=== PATIENT | male | born 1975 | race Caucasian/White ===

== ENCOUNTER 2017-04-06 14:24 | Inpatient (IN) | payer MEDICAID ==
[~2017-04-06] VITALS: Ht 180.3 cm; Wt 104.4 kg
[~2017-04-06 14:24] MED LIST: COLACE100 MG PO; FLAGYL500 MG PO; GAS RELIEF80 MG PO; HUMULIN R100 U/1 M1 SC; IBUPROFEN400 MG PO; LAC PO; LEVAQUIN750 MG PO; LEVEMIR100 U/M1 SC; LIPI10 PO; LOP600 PO; LOVASTATIN40 MG PO; METFORMIN HCL1000 MG PO; METFORMIN HCL500 MG PO; METFORMIN HCL850 MG PO; NOR10T PO; NORCO1 TA2 PO; NOVOLIN R100 U/ML IJ; PAN PO; PRILOSEC20 MG PO; PROTONIX40 MG PO; REG5 PO; ZETIA10 M1 PO
[2017-04-06 15:37] LABS: BILIRUBIN TOTAL 0.9 mg/dL (0.20-1.00); CALCIUM 6.6 mg/dL (8.5-10.1); CHLORIDE SERUM 93 mmol/L (98-107); CREATININE SERUM 0.9 mg/dL (0.7-1.3); GFR1 > 60 mL/min; GLUCOSE SERUM 424 mg/dL (74-106); LIPASE 269 IU/L (73-393); POTASSIUM SERUM 3.7 mmol/L (3.5-5.1); SODIUM SERUM 128 mmol/L (136-145)
[2017-04-06 15:39] LABS: PLATELET COUNT 279 x10^3mcL (130-400)
[2017-04-06 15:57] LABS: BAND NEUTROPHIL 4 % (0-10); BASOPHIL 0 % (0-2); MONOCYTE 1 % (0-7); SEGMENTED NEUTROPHILS 80 % (37-75)
[2017-04-06 16:21] LABS: ALKALINE PHOSPHATASE 154 U/L (46-116); AST/SGOT 94 U/L (15-37)
[2017-04-06 16:36] LABS: PLATELET MORPHOLOGY PLATELETS NORMAL
[2017-04-06 17:01] LABS: BILIRUBIN TOTAL 0.87 mg/dL (0.20-1.00); CALCIUM 6.4 mg/dL (8.5-10.1); CHLORIDE SERUM 97 mmol/L (98-107); GFR1 > 60 mL/min; GLUCOSE SERUM 273 mg/dL (74-106); POTASSIUM SERUM 3.5 mmol/L (3.5-5.1); SODIUM SERUM 132 mmol/L (136-145)
[2017-04-06 17:11] LABS: CARBON DIOXIDE 8.4 mmol/L (21-32)
[2017-04-06 17:14] LABS: TOTAL PROTEIN, SERUM 6.7 g/dL (6.4-8.2)
[2017-04-06 17:15] LABS: ALBUMIN 2.8 g/dL (3.4-5.0); CARBON DIOXIDE 9.4 mmol/L (21-32)
[2017-04-06 18:26] LABS: ALBUMIN 2.6 g/dL (3.4-5.0); ALKALINE PHOSPHATASE 154 U/L (46-116); AST/SGOT 94 U/L (15-37); CREATININE SERUM 0.5 mg/dL (0.7-1.3); TOTAL PROTEIN, SERUM 6.7 g/dL (6.4-8.2)
[2017-04-06 18:37] VITALS: Ht 180.3 cm; Wt 104.4 kg
[2017-04-06 18:39] VITALS: BP 128/74
[2017-04-06 18:41] VITALS: BP 128/74
[2017-04-06 19:46] LABS: T3 TOTAL 1.01 ng/mL
[2017-04-06 19:47] LABS: AMYLASE 41 U/L (25-115); HDL CHOLESTEROL 44 mg/dL (40-60)
[2017-04-06 19:48] LABS: FREE T4 0.89 ng/dL (0.76-1.46)
[2017-04-06 20:27] VITALS: BP 104/50
[2017-04-06 21:12] LABS: CHOLESTEROL 428 mg/dL (<200); CHOLESTEROL/HDL RATIO 9.7; TRIGLYCERIDES 5069 mg/dL (<150)
[2017-04-06 21:14] LABS: T4(THYROXINE) 5.4 ug/dL (4.7-13.3)
[2017-04-07 05:38] LABS: PLATELET COUNT 241 x10^3mcL (130-400); RED CELL DISTRIBUTION WIDTH 13.5 % (11.5-14.5)
[2017-04-07 06:13] VITALS: BP 108/71
[2017-04-07 06:14] LABS: ATYPICAL LYMPH 1 %; MONOCYTE 4 % (0-7); SEGMENTED NEUTROPHILS 58 % (37-75)
[2017-04-07 06:16] LABS: PLATELET MORPHOLOGY FEW LARGE PLATELETS; rbc morphology (normal/abnorm) NORMAL (NORMAL)
[2017-04-07 07:24] LABS: CALCIUM 6.8 mg/dL (8.5-10.1); CARBON DIOXIDE 15.7 mmol/L (21-32); CHLORIDE SERUM 100 mmol/L (98-107); MAGNESIUM 1.7 mg/dL (1.8-2.4); PHOSPHOROUS 2.7 mg/dL (2.5-4.9); SODIUM SERUM 134 mmol/L (136-145)
[2017-04-07 07:37] LABS: CREATININE SERUM 0.6 mg/dL (0.7-1.3); GFR1 > 60 mL/min
[2017-04-07 07:38] LABS: GLUCOSE SERUM 296 mg/dL (74-106)
[2017-04-07 09:55] LABS: UA SPECIFIC GRAVITY 1.025 (1.005-1.035); microscopic required? YES; urine erythrocyte TRACE (NEGATIVE)
[2017-04-07 10:01] LABS: AMPHETAMINE QUAL UR NONE DETECTED (NEG <=1000)
[2017-04-07 10:16] VITALS: BP 111/66
[2017-04-07 14:29] VITALS: BP 120/66
[2017-04-07 17:47] VITALS: BP 1125/73; BP 125/73
[2017-04-07] MEDS ORDERED: MYCOO TOP (18:57)
[2017-04-07 22:36] LABS: ALT/SGPT 25 U/L (16-63)
== END 2017-04-07 18:47 | disposition left against medical advice (07) | DRG 48 ==
LOC: ED 14:24 → DU 17:38
PROVIDERS: Emergency Medicine; ADMIT Family Medicine
DX: E11.43 Type 2 diabetes mellitus with diabetic autonomic (poly)neuropathy (principal); E43 Unspecified severe protein-calorie malnutrition; E87.2 Acidosis; K86.1 Other chronic pancreatitis; E11.65 Type 2 diabetes mellitus with hyperglycemia; E87.1 Hypo-osmolality and hyponatremia; K86.81 Exocrine pancreatic insufficiency; E87.8 Other disorders of electrolyte and fluid balance, not elsewhere classified; E83.51 Hypocalcemia; I10 Essential (primary) hypertension; B37.49 Other urogenital candidiasis; K31.84 Gastroparesis; M54.32 Sciatica, left side; E78.5 Hyperlipidemia, unspecified; Z98.1 Arthrodesis status; Z79.4 Long term (current) use of insulin; Z68.32 Body mass index [BMI] 32.0-32.9, adult; F17.210 Nicotine dependence, cigarettes, uncomplicated; Z79.84 Long term (current) use of oral hypoglycemic drugs; Z79.1 Long term (current) use of non-steroidal anti-inflammatories (NSAID)
CPT/HCPCS: 36600; 82962; 83880; 84439; C9113; J1200; J1450; J1815; J2270; J2405; J7030; J7042; J8597; Q0092

== ENCOUNTER 2017-11-11 16:20 | Inpatient (IN) | payer MEDICAID ==
[~2017-11-11] VITALS: Ht 180.3 cm; Wt 99.3 kg
[~2017-11-11 16:20] MED LIST changes: -METFORMIN HCL1000 MG PO; +METFORMIN HYDR500 M1 PO; +MYCOO TOP
[2017-11-11 20:56] LABS: PLATELET COUNT 377 x10^3mcL (130-400); RED CELL DISTRIBUTION WIDTH 13.7 % (11.5-14.5)
[2017-11-11 21:26] LABS: BAND NEUTROPHIL 3 % (0-10); BASOPHIL 0 % (0-2); MONOCYTE 3 % (0-7); SEGMENTED NEUTROPHILS 72 % (37-75)
[2017-11-11 21:27] LABS: rbc morphology (normal/abnorm) NORMAL (NORMAL)
[2017-11-12] VITALS (7 sets, daily range): BP systolic 108–143; BP diastolic 67–80; Ht 180.3 cm; Wt 99.3 kg
[2017-11-12] MEDS ORDERED: LANTUS SOLOS100 U/M1 (00:26)
[2017-11-12] MEDS ORDERED: NOVI SQ (00:26)
[2017-11-12 00:49] LABS: microscopic required? YES; urine erythrocyte NEGATIVE (NEGATIVE)
[2017-11-12 02:01] LABS: AMPHETAMINE QUAL UR NONE DETECTED (NEG <=1000)
[2017-11-12 04:26] LABS: PLATELET COUNT 287 x10^3mcL (130-400); RED CELL DISTRIBUTION WIDTH 13.3 % (11.5-14.5)
[2017-11-12 04:49] LABS: BAND NEUTROPHIL 2 % (0-10); SEGMENTED NEUTROPHILS 85 % (37-75); rbc morphology (normal/abnorm) NORMAL (NORMAL)
[2017-11-12 15:12] LABS: CARBON DIOXIDE 22.2 mmol/L (21-32); CHLORIDE SERUM 101 mmol/L (98-107); CHOLESTEROL 195 mg/dL (<200); CREATININE SERUM 0.5 mg/dL (0.7-1.3); GFR1 > 60 mL/min; GLUCOSE SERUM 230 mg/dL (74-106); LACTIC DEHYDROGENASE (LDH) 137 U/L (100-190); PHOSPHOROUS 2.6 mg/dL (2.5-4.9); POTASSIUM SERUM 3.9 mmol/L (3.5-5.1); SODIUM SERUM 138 mmol/L (136-145)
[2017-11-12 15:15] LABS: CHOLESTEROL/HDL RATIO 7.8; HDL CHOLESTEROL 25 mg/dL (40-60); TRIGLYCERIDES 929 mg/dL (<150)
[2017-11-12 15:44] LABS: FREE T4 1.2 ng/dL (0.76-1.46); FREE THYROXINE INDEX 2.8 ug/dL (1.4-4.5); T4(THYROXINE) 8.1 ug/dL (4.7-13.3)
[2017-11-13 04:50] VITALS: BP 125/69
[2017-11-13 06:27] LABS: BASOPHIL % 0.6 % (0-2); PLATELET COUNT 223 x10^3mcL (130-400); RED CELL DISTRIBUTION WIDTH 13.3 % (11.5-14.5)
[2017-11-13 06:45] LABS: CALCIUM 7.7 mg/dL (8.5-10.1); CARBON DIOXIDE 23.2 mmol/L (21-32); CHLORIDE SERUM 102 mmol/L (98-107); CREATININE SERUM 0.6 mg/dL (0.7-1.3); GFR1 > 60 mL/min; GLUCOSE SERUM 224 mg/dL (74-106); POTASSIUM SERUM 3.8 mmol/L (3.5-5.1); SODIUM SERUM 136 mmol/L (136-145)
[2017-11-13 09:43] VITALS: BP 120/72
[2017-11-13 11:27] VITALS: BP 120/72
== END 2017-11-13 12:40 | disposition home or self-care (01) | DRG 282 ==
LOC: ED 16:20 → DU 11-12 00:24
PROVIDERS: Emergency Medicine; Family Medicine; Student in an Organized Health Care Education/Training Program
DX: K86.3 Pseudocyst of pancreas (principal); N17.0 Acute kidney failure with tubular necrosis; E11.43 Type 2 diabetes mellitus with diabetic autonomic (poly)neuropathy; K31.84 Gastroparesis; D68.69 Other thrombophilia; E11.65 Type 2 diabetes mellitus with hyperglycemia; E87.1 Hypo-osmolality and hyponatremia; E78.1 Pure hyperglyceridemia; M54.32 Sciatica, left side; I10 Essential (primary) hypertension; E78.5 Hyperlipidemia, unspecified; F12.10 Cannabis abuse, uncomplicated; E66.9 Obesity, unspecified; Z68.31 Body mass index [BMI] 31.0-31.9, adult; Z98.1 Arthrodesis status; Z79.891 Long term (current) use of opiate analgesic; Z79.4 Long term (current) use of insulin; Z87.891 Personal history of nicotine dependence
CPT/HCPCS: 82962; 83880; 84439; G0480; J1200; J1885; J2270; J2405; J2765; J7030; Q0092; Q9967

== ENCOUNTER 2018-05-17 12:50 | Inpatient (IN) | payer MEDICAID ==
[~2018-05-17] VITALS: Ht 180.3 cm; Wt 98.6 kg
[~2018-05-17 12:50] MED LIST changes: +LANTUS SOLOS100 U/M1; +NOVI SQ
[2018-05-17 13:16] VITALS: Ht 180.3 cm; Wt 98.6 kg
[2018-05-17 16:25] LABS: PLATELET COUNT 288 x10^3mcL (130-400); RED CELL DISTRIBUTION WIDTH 13.3 % (11.5-14.5)
[2018-05-17 17:56] LABS: BAND NEUTROPHIL 3 % (0-10); MONOCYTE 10 % (0-7); SEGMENTED NEUTROPHILS 70 % (37-75)
[2018-05-17 17:58] LABS: PLATELET MORPHOLOGY PLATELETS NORMAL; rbc morphology (normal/abnorm) NORMAL (NORMAL)
[2018-05-17 18:09] LABS: ALBUMIN 3.4 g/dL (3.4-5.0); BILIRUBIN TOTAL 1.03 mg/dL (0.20-1.00); CALCIUM 7.6 mg/dL (8.5-10.1); CARBON DIOXIDE 21.9 mmol/L (21-32); CHLORIDE SERUM 90 mmol/L (98-107); CREATININE SERUM 0.7 mg/dL (0.7-1.3); GFR1 > 60 mL/min; GLUCOSE SERUM 432 mg/dL (74-106); LIPASE 433 IU/L (73-393); SODIUM SERUM 130 mmol/L (136-145)
[2018-05-17 18:12] LABS: POTASSIUM SERUM 4.2 mmol/L (3.5-5.1)
[2018-05-17 19:02] LABS: microscopic required? NO
[2018-05-17 19:43] LABS: urine erythrocyte NEGATIVE (NEGATIVE)
[2018-05-17] MEDS ORDERED: TRAMADOL HCL50 MG PO (19:50)
[2018-05-17] MEDS ORDERED: METFORMIN HCL1000 MG PO (19:51)
[2018-05-17 21:23] VITALS: BP 168/85
[2018-05-17 22:18] LABS: CHOLESTEROL 303 mg/dL (<200); CHOLESTEROL/HDL RATIO 11.2; HDL CHOLESTEROL 27 mg/dL (40-60); TRIGLYCERIDES 2581 mg/dL (<150)
[2018-05-18 02:15] VITALS: BP 135/73
[2018-05-18 05:16] VITALS: BP 109/72
[2018-05-18 06:54] LABS: PLATELET COUNT 266 x10^3mcL (130-400); RED CELL DISTRIBUTION WIDTH 13.3 % (11.5-14.5)
[2018-05-18 07:29] LABS: CARBON DIOXIDE 24.6 mmol/L (21-32); GFR1 > 60 mL/min; PHOSPHOROUS 2.4 mg/dL (2.5-4.9)
[2018-05-18 09:16] VITALS: BP 126/77
[2018-05-18 09:36] LABS: CHLORIDE SERUM 99 mmol/L (98-107); CREATININE SERUM 0.5 mg/dL (0.7-1.3); GLUCOSE SERUM 281 mg/dL (74-106); MAGNESIUM 1.8 mg/dL (1.8-2.4); POTASSIUM SERUM 3.8 mmol/L (3.5-5.1); SODIUM SERUM 134 mmol/L (136-145)
[2018-05-18 10:06] LABS: CALCIUM 6.8 mg/dL (8.5-10.1)
[2018-05-18 10:33] LABS: BAND NEUTROPHIL 2 % (0-10); BASOPHIL 0 % (0-2); MONOCYTE 2 % (0-7); SEGMENTED NEUTROPHILS 75 % (37-75)
[2018-05-18 10:35] LABS: PLATELET MORPHOLOGY PLATELETS NORMAL
[2018-05-18 11:15] LABS: TOTAL PROTEIN, SERUM 5.5 g/dL (6.4-8.2)
[2018-05-18 11:16] LABS: AST/SGOT 13 U/L (15-37)
[2018-05-18 11:17] LABS: ALT/SGPT 18 U/L (16-63)
[2018-05-18 13:40] VITALS: BP 140/83
[2018-05-18 17:08] VITALS: BP 136/84
[2018-05-18 20:50] VITALS: BP 119/60
[2018-05-19 05:25] VITALS: BP 122/81
[2018-05-19 07:32] LABS: CALCIUM 8.9 mg/dL (8.5-10.1); CARBON DIOXIDE 28.2 mmol/L (21-32); CHLORIDE SERUM 102 mmol/L (98-107); CREATININE SERUM 0.6 mg/dL (0.7-1.3); GFR1 > 60 mL/min; GLUCOSE SERUM 233 mg/dL (74-106); LIPASE 168 IU/L (73-393); PHOSPHOROUS 3.4 mg/dL (2.5-4.9); POTASSIUM SERUM 4.2 mmol/L (3.5-5.1); SODIUM SERUM 140 mmol/L (136-145)
[2018-05-19 07:33] LABS: PLATELET COUNT 156 x10^3mcL (130-400)
[2018-05-19 07:40] LABS: RED CELL DISTRIBUTION WIDTH 16.1 % (11.5-14.5)
[2018-05-19 09:27] VITALS: BP 126/88
[2018-05-19 11:56] LABS: BAND NEUTROPHIL 3 % (0-10); MONOCYTE 4 % (0-7); SEGMENTED NEUTROPHILS 75 % (37-75); rbc morphology (normal/abnorm) NORMAL (NORMAL)
[2018-05-19 11:57] LABS: PLATELET MORPHOLOGY PLATELETS NORMAL
[2018-05-19 13:11] VITALS: BP 130/82
[2018-05-19 13:15] VITALS: BP 130/82
== END 2018-05-19 14:00 | disposition home or self-care (01) | DRG 282 ==
LOC: ED 12:50 → DU 19:12
PROVIDERS: Emergency Medicine; Family Medicine
DX: K85.90 Acute pancreatitis without necrosis or infection, unspecified (principal); E10.65 Type 1 diabetes mellitus with hyperglycemia; E87.1 Hypo-osmolality and hyponatremia; K86.3 Pseudocyst of pancreas; K86.1 Other chronic pancreatitis; E78.1 Pure hyperglyceridemia; F17.210 Nicotine dependence, cigarettes, uncomplicated; Z68.30 Body mass index [BMI] 30.0-30.9, adult; Z79.4 Long term (current) use of insulin
CPT/HCPCS: 36600; 82962; 83880; 84439; G0480; J0295; J1200; J1815; J2270; J2405; J3490; J7030; Q0092

== ENCOUNTER 2018-05-23 05:32 | Emergency (ER) | payer MEDICAID ==
[~2018-05-23] VITALS: Ht 180.3 cm; Wt 96.2 kg
[~2018-05-23 05:32] MED LIST changes: +METFORMIN HCL1000 MG PO; +TRAMADOL HCL50 MG PO
[2018-05-23 05:37] VITALS: Ht 180.3 cm; Wt 96.2 kg
[2018-05-23 06:23] LABS: CALCIUM 8.4 mg/dL (8.5-10.1); CARBON DIOXIDE 24.5 mmol/L (21-32); CHLORIDE SERUM 97 mmol/L (98-107); CREATININE SERUM 0.6 mg/dL (0.7-1.3); GFR1 > 60 mL/min; GLUCOSE SERUM 354 mg/dL (74-106); POTASSIUM SERUM 3.8 mmol/L (3.5-5.1); SODIUM SERUM 131 mmol/L (136-145)
[2018-05-23 06:42] LABS: BASOPHIL % 0.3 % (0-2); PLATELET COUNT 273 x10^3mcL (130-400); RED CELL DISTRIBUTION WIDTH 13.1 % (11.5-14.5)
[2018-05-23 08:25] VITALS: BP 126/78
== END 2018-05-23 08:23 | disposition home or self-care (01) ==
LOC: ED 05:32
PROVIDERS: Emergency Medicine
DX: L02.11 Cutaneous abscess of neck (principal); E11.65 Type 2 diabetes mellitus with hyperglycemia; E78.00 Pure hypercholesterolemia, unspecified; Z90.49 Acquired absence of other specified parts of digestive tract; Z88.6 Allergy status to analgesic agent; Z88.8 Allergy status to other drugs, medicaments and biological substances
CPT/HCPCS: 82962; J0295; J1815; J2001; J3010; J3490; J7030

== ENCOUNTER 2018-05-25 05:38 | Emergency (ER) | payer MEDICAID ==
[~2018-05-25] VITALS: Ht 180.3 cm; Wt 99.8 kg
[2018-05-25 05:41] VITALS: Ht 180.3 cm; Wt 99.8 kg
[2018-05-25 08:31] VITALS: BP 130/76
== END 2018-05-25 08:31 | disposition home or self-care (01) ==
LOC: ED 05:38
DX: L02.11 Cutaneous abscess of neck (principal); E11.9 Type 2 diabetes mellitus without complications; E78.00 Pure hypercholesterolemia, unspecified; Z88.6 Allergy status to analgesic agent; Z90.49 Acquired absence of other specified parts of digestive tract
CPT/HCPCS: 90715; J2001

== ENCOUNTER 2018-09-13 13:08 | Inpatient (IN) | payer MEDICAID ==
[~2018-09-13] VITALS: Ht 180.3 cm; Wt 104.5 kg
[2018-09-13 13:11] VITALS: Ht 180.3 cm; Wt 104.5 kg
[2018-09-13 13:55] LABS: CALCIUM 7.1 mg/dL (8.5-10.1); CARBON DIOXIDE 17.4 mmol/L (21-32); CHLORIDE SERUM 94 mmol/L (98-107); GFR1 > 60 mL/min; GLUCOSE SERUM 329 mg/dL (74-106); POTASSIUM SERUM 3.9 mmol/L (3.5-5.1); SODIUM SERUM 129 mmol/L (136-145)
[2018-09-13 13:59] LABS: ALKALINE PHOSPHATASE 125 U/L (46-116); BILIRUBIN TOTAL 0.9 mg/dL (0.20-1.00); LIPASE 570 IU/L (73-393)
[2018-09-13 14:01] LABS: PLATELET COUNT 338 x10^3mcL (130-400); RED CELL DISTRIBUTION WIDTH 12.8 % (11.5-14.5)
[2018-09-13 14:19] LABS: CREATININE SERUM 0.3 mg/dL (0.7-1.3); TOTAL PROTEIN, SERUM 6.5 g/dL (6.4-8.2)
[2018-09-13 14:23] LABS: ALBUMIN 2.7 g/dL (3.4-5.0)
[2018-09-13 15:21] LABS: BAND NEUTROPHIL 4 % (0-10); BASOPHIL 4 % (0-2); MONOCYTE 6 % (0-7); SEGMENTED NEUTROPHILS 66 % (37-75)
[2018-09-13 15:22] LABS: PLATELET MORPHOLOGY PLATELETS NORMAL; rbc morphology (normal/abnorm) NORMAL (NORMAL)
[2018-09-13 16:24] LABS: ALT/SGPT 39 U/L (16-63)
[2018-09-13 16:30] LABS: AST/SGOT 30 U/L (15-37)
[2018-09-13 16:37] LABS: microscopic required? YES; urine erythrocyte NEGATIVE (NEGATIVE)
[2018-09-13 16:43] LABS: T3 TOTAL 1.36 ng/mL
[2018-09-13 16:45] LABS: AMPHETAMINE QUAL UR NONE DETECTED (See below)
[2018-09-13 16:45] LABS: HDL CHOLESTEROL 41 mg/dL (40-60); PHOSPHOROUS 2.5 mg/dL (2.5-4.9)
[2018-09-13 16:50] LABS: FREE T4 1.09 ng/dL (0.76-1.46); FREE THYROXINE INDEX 3.1 ug/dL (1.4-4.5); T4(THYROXINE) 9.6 ug/dL (4.7-13.3)
[2018-09-13 17:03] LABS: MAGNESIUM 1.6 mg/dL (1.8-2.4)
[2018-09-13 17:19] VITALS: BP 130/89
[2018-09-13 17:19] LABS: TRIGLYCERIDES 5289 mg/dL (<150)
[2018-09-13 17:20] LABS: CHOLESTEROL 650 mg/dL (<200); CHOLESTEROL/HDL RATIO 15.9
[2018-09-13 21:00] VITALS: BP 130/80
[2018-09-13 23:32] LABS: RED BLOOD CELLS 4.62 M/mm3 (4.52-5.90)
[2018-09-14 00:13] LABS: IRON 70 ug/dL (65-170)
[2018-09-14 00:18] LABS: TOTAL IRON BINDING CAPACITY 202 ug/dL (250-450)
[2018-09-14 05:36] VITALS: BP 135/70
[2018-09-14 07:31] VITALS: BP 123/99
[2018-09-14 10:02] LABS: PLATELET COUNT 280 x10^3mcL (130-400); RED CELL DISTRIBUTION WIDTH 13.4 % (11.5-14.5)
[2018-09-14 10:27] LABS: CARBON DIOXIDE 18.9 mmol/L (21-32); CHLORIDE SERUM 96 mmol/L (98-107); CREATININE SERUM 0.6 mg/dL (0.7-1.3); GFR1 > 60 mL/min; GLUCOSE SERUM 359 mg/dL (74-106); MAGNESIUM 1.8 mg/dL (1.8-2.4); PHOSPHOROUS 2.6 mg/dL (2.5-4.9); POTASSIUM SERUM 4.5 mmol/L (3.5-5.1); SODIUM SERUM 128 mmol/L (136-145)
[2018-09-14 12:02] VITALS: BP 130/85
[2018-09-14 12:59] LABS: BAND NEUTROPHIL 10 % (0-10); MONOCYTE 6 % (0-7); SEGMENTED NEUTROPHILS 66 % (37-75)
[2018-09-14 13:00] LABS: PLATELET MORPHOLOGY PLATELETS NORMAL; rbc morphology (normal/abnorm) NORMAL (NORMAL)
[2018-09-14 16:00] VITALS: BP 147/86
== END 2018-09-14 18:59 | disposition left against medical advice (07) | DRG 282 ==
LOC: ED 13:08 → MU 15:31
PROVIDERS: Emergency Medicine; Internal Medicine
DX: K85.90 Acute pancreatitis without necrosis or infection, unspecified (principal); E43 Unspecified severe protein-calorie malnutrition; E11.65 Type 2 diabetes mellitus with hyperglycemia; E83.42 Hypomagnesemia; D50.9 Iron deficiency anemia, unspecified; F17.210 Nicotine dependence, cigarettes, uncomplicated; E78.5 Hyperlipidemia, unspecified; E83.51 Hypocalcemia; E78.1 Pure hyperglyceridemia; G89.29 Other chronic pain; M54.9 Dorsalgia, unspecified; K86.3 Pseudocyst of pancreas; Z98.1 Arthrodesis status; Z68.31 Body mass index [BMI] 31.0-31.9, adult; Z79.84 Long term (current) use of oral hypoglycemic drugs
CPT/HCPCS: 36600; 82962; 83880; 84439; 99406; C9113; J2270; J2550; J3010; J7030; Q0092

== ENCOUNTER 2019-10-22 15:51 | Emergency (ER) | payer SELFPAY ==
[~2019-10-22] VITALS: Ht 177.8 cm; Wt 100.2 kg
[2019-10-22 15:53] VITALS: Ht 177.8 cm; Wt 100.2 kg
[2019-10-22 16:50] LABS: BASOPHIL % 0.5 % (0-2); PLATELET COUNT 248 x10^3mcL (130-400); RED CELL DISTRIBUTION WIDTH 13.4 % (11.5-14.5)
[2019-10-22 17:40] LABS: ALKALINE PHOSPHATASE 153 U/L (46-116); BILIRUBIN TOTAL 0.5 mg/dL (0.20-1.00); CALCIUM 8.1 mg/dL (8.5-10.1); CARBON DIOXIDE 27.9 mmol/L (21-32); CHLORIDE SERUM 100 mmol/L (98-107); CREATININE SERUM 0.8 mg/dL (0.7-1.3); GFR1 > 60 mL/min; GLUCOSE SERUM 369 mg/dL (74-106); LIPASE 323 IU/L (73-393); SODIUM SERUM 137 mmol/L (136-145)
[2019-10-22 17:41] LABS: ALBUMIN 3.2 g/dL (3.4-5.0); CHOLESTEROL 321 mg/dL (<200); CHOLESTEROL/HDL RATIO 13.4; HDL CHOLESTEROL 24 mg/dL (40-60); TRIGLYCERIDES 1954 mg/dL (<150)
[2019-10-22 18:00] LABS: AST/SGOT 41 U/L (15-37)
[2019-10-22 18:50] VITALS: BP 132/86
[2019-10-22 19:22] LABS: ALT/SGPT 24 U/L (16-63)
== END 2019-10-22 18:50 | disposition home or self-care (01) ==
LOC: ED 15:51
PROVIDERS: Emergency Medicine
DX: R10.13 Epigastric pain (principal); E11.65 Type 2 diabetes mellitus with hyperglycemia; E78.5 Hyperlipidemia, unspecified; E78.00 Pure hypercholesterolemia, unspecified; R10.11 Right upper quadrant pain; R10.12 Left upper quadrant pain; R11.2 Nausea with vomiting, unspecified; M54.6 Pain in thoracic spine; R35.8 Other polyuria; Z88.6 Allergy status to analgesic agent; Z88.5 Allergy status to narcotic agent; Z90.49 Acquired absence of other specified parts of digestive tract; Z98.890 Other specified postprocedural states
CPT/HCPCS: 82962; J2270; J2405; J7030; Q0092